=== PATIENT | female | born 1940 | race Caucasian/White ===

== ENCOUNTER 2023-09-24 04:35 | Emergency (ER) | payer MEDICARE, SELFPAY ==
[2023-09-24 04:44] VITALS: BP 120/91
[2023-09-24 05:12] VITALS: BMI 19.5
--- NOTE | 2023-09-24 06:29 | ED.GENMED ---
History of Present Illness
General
Chief Complaint: Fall
[facility]
Exam Limitations: dementia
Time Seen by Provider: 09/24/23 06:03
Nursing documentation reviewed up to this point in time: agreed with
Travel History
Have you had any contact with someone who has COVID-19?: Unable to Answer
Do you have any symptoms of coronavirus? Fever > 100 degrees, chills, cough, shortness of breath, sore throat, loss of taste or smell, muscle aches, or headache?: Unable to Answer
History of Present Illness
History of Present Illness:
Patient is an 82-year-old female who presents to the emergency department from a local jail after being found on the floor semiproned on her left side. Patient's bed is not on the floor but not very high either according to the nursing
home. Patient has not been ill recently. Patient has a history of dementia and agitation. Patient is difficult to examine as she can become quite agitated with physical touching.
Past History
Past History
ED Past Medical History: HTN and Other (Dementia, )
ED Past Surgical History: Gynecological (Hysterectomy)
Social History
Tobacco: Non-smoker
Alcohol: Occasional
Personal:
Living: jail
Review of Systems
Review of Systems
All Other Systems: Not applicable
Phy Exam
Physical Exam
Physical Exam:
Physical Exam
General: No apparent distress, alert, elderly and frail
HENT: Normocephalic with ecchymosis and abrasion in the left periorbital region, supple with no tracheal deviation or contusion
Eyes: Clear sclera, conjuctiva without injection, extraocular muscles intact
Heart: Regular rhythm and rate. No S3, S4. No murmur. No NVD
Lungs: No respiratory distress, no stridor, lung sounds clear and equal bilaterally, chest wall symmetrical and nontender
Abdomen: Soft, nontender
Neuro: Alert and usual agitated mental status, CN II - XII grossly intact, no apparent motor focality
Skin: no rash. Superficial abrasions as stated above as well as 1 in the left anterior knee
Psychiatric: well kept. interactive and cooperative
Extremities: No edema, cyanosis, tenderness
Musculoskeletal: No apparent hip or pelvis tenderness or abnormality. No apparent cervical, thoracic or lumbar spine tenderness
Scores
Heart Failure Risk
Heart Failure Risk Score: Not Applicable
Heart Score for Chest Pain Patients
STEMI patient?: Not applicable
Withdrawal Assessment of Alcohol
Withdrawal Assessment Completed?: Not applicable
Course
Orders/Labs/Results
Orders:
Orders
09/24/23 05:52
CT Cervical Spine W/o Iv Contr Urgent
Comment:
Reason For Exam: unwitnessed fall
CT Head W/o Iv Contrast Urgent
Comment:
Reason For Exam: unwitnessed fall
Urinalysis Reflex To Culture Urgent
CR Chest Portable - 1 View Urgent
Comment:
Reason For Exam: confused, eval for pna
Reason Study Needs to be Portable: Unable to Transport
09/24/23 Breakfast
NPO
Reason for opting out of Plant Protection Superintendent order writing: Provider Decision
Allow oral meds: No
Allow clear liquids: Sips of Clears
09/24/23 06:22
Asenapine Sublingual [Saphris] 5 mg SL NOW STA
09/24/23 06:26
Lorazepam [Ativan] 0.5 mg PO NOW STA
09/24/23 05:52
09/24/23 05:52
Vital Signs
Initial and Last Documented VS:
Initial Vital Signs
Temp Pulse Resp BP Pulse Ox
98.0 F 86 21 120/91 96
09/24/23 04:44 09/24/23 04:44 09/24/23 04:44 09/24/23 04:44 09/24/23 04:44
Last Documented Vital Signs
Temp Pulse Resp BP Pulse Ox
98.0 F 86 21 120/91 96
09/24/23 04:44 09/24/23 04:44 09/24/23 04:44 09/24/23 04:44 09/24/23 05:12
*Radiology
Radiology exam reviewed: radiology read reviewed (Nothing acute of the head and neck CTs)
*Pulse Oximetry
Patient hypoxic: no
*EKG
Interpreted by ED Provider?: NA
*Concrete Swimming Pool Installer Interpretation
Rate: Concrete Swimming Pool Installer- N/A
*Critical Care Note
Total Time (30-74mins, 75-104mins- exclusive of procedures): Not Applicable
ED Attending Note
-
Portions of this chart may have been created with voice recognition software.� Occasional wrong word or��sound alike� substitutions may have occurred due to the inherent limitations of voice recognition software.
Discharge Plan
Departure
Patient Disposition: Prison/SNF
Date of Disposition: 09/24/23
Time of Disposition: 08:16
Patient with high blood pressure during this ER visit?: No
Condition: Fair
Covid-19: Not Applicable
Discharge Problem:
Periorbital contusion of left eye, Dementia with agitation, Fall
Instructions: Contusion (DC), Preventing falls in adults, Skin Abrasions (DC)
Prescriptions:
No Action
quetiapine 25 mg Tablet
37.5 mg PO TID Qty: 30 0RF
Referrals:
Maciel Calderon MD [Family Provider] - As needed
Activity Restrictions/Additional Instructions:
Continue present medications and therapy.
Interventions
Interventions:
*Risk Screen - Suicide Last Done: 09/24/23 04:44
*General Assessment Last Done: 09/24/23 04:44
*Neglect/Abuse Screening Last Done: 09/24/23 04:44
ED- Fall Risk Assessment Last Done: 09/24/23 05:12
*ED COVID-19 Vaccine History Last Done: 09/24/23 05:12
ED-Musculoskeletal Assessment Last Done: 09/24/23 05:12
ED- Neurological Assessment Last Done: 09/24/23 05:12
ED-Skin Assessment Last Done: 09/24/23 05:12
Discharge Date and Time
Print Language: [id number]
[2023-09-24 08:15] VITALS: BP 165/82
[2023-09-24 08:40] LABS: Urine Albumin Negative (Neg - Trace); Urine Bilirubin 1+ (Negative); Urine Character Clear (Clear); Urine Color Yellow; Urine Glucose Negative (Negative); Urine Ketone Trace (Negative); Urine Leukocyte Negative (Negative); Urine Nitrite Negative (Negative); Urine Occult Blood Negative (Negative); Urine Urobilinogen 1+ (Neg - 1+)
== END 2023-09-24 11:22 ==
LOC: EMR 04:35
PROVIDERS: Emergency Medicine; EMERGENCY PHYSICIAN Emergency Medicine; FAMILY PHYSICIAN Family Medicine
DX: S00.12XA Contusion of left eyelid and periocular area, initial encounter (principal); F03.911 Unspecified dementia, unspecified severity, with agitation; W19.XXXA Unspecified fall, initial encounter; I10 Essential (primary) hypertension; Z90.710 Acquired absence of both cervix and uterus
CPT/HCPCS: 99284; 70450; 71045; 72125; 81003